=== PATIENT | female | born 1945 | race African-American/Black ===

== ENCOUNTER 2022-01-12 13:05 | Inpatient (IN) | payer MEDICARE, MEDICAID ==
[~2022-01-12] VITALS: Ht 162.6 cm; Wt 85.7 kg
[2022-01-12] MEDS: DEXT 5%/0.9% NACL 1,000 ML IV SCH (01:20)
[2022-01-12] MEDS ORDERED: ONDANSETRON HCL 4MG/2ML INJ IV STA (13:22)
[2022-01-12] MEDS ORDERED: PIPERACILLIN/TAZ 3.375G PREMIX 50 ML IV ONE (13:30)
[2022-01-12] MEDS ORDERED: VANCOMYCIN 1G PREMIX 200 ML IV ONE (13:30)
[2022-01-12] MEDS ORDERED: MIDAZOLAM HCL 2 MG/2 ML VIAL IV ONE (13:45)
[2022-01-12 14:29] LABS: MEAN CORPUSCULAR HEMOGLOBIN 29.3 pg (28.0-32.0); MEAN CORPUSCULAR VOLUME 85.8 fL (81.0-99.0); MEAN PLATELET VOLUME 8.3 fl (7.4-10.4); PLATELET 438 x1000/uL (130-400); RED BLOOD CELL COUNT 1.69 mill/uL (4.2-5.4); RED CELL DISTRIBUTION WIDTH 16.7 % (11.6-14.6)
[2022-01-12 14:30] LABS: PROTHROMBIN TIME 10.9 sec (9.6-11.0)
[2022-01-12 14:35] LABS: HEMATOCRIT. 14.5 % (36.0-48.0)
[2022-01-12] MEDS ORDERED: PANTOPRAZOLE SODIUM 40 MG/VIAL IV SCH (15:00)
[2022-01-12 15:06] LABS: CHLORIDE 78 mEq/L (98-107)
[2022-01-12] MEDS ORDERED: CLONIDINE 0.1MG TABLET PO PRN (15:30)
[2022-01-12] MEDS ORDERED: ONDANSETRON HCL 4MG/2ML INJ IV PRN (15:30)
[2022-01-12] MEDS ORDERED: NITROGLYCERIN 0.4MG TABLET SL SL PRN (15:30)
[2022-01-12] MEDS ORDERED: ACETAMINOPHEN 325MG TABLET PO PRN (15:30)
[2022-01-12] MEDS ORDERED: ZOLPIDEM TARTRATE 5MG TABLET PO PRN (15:30)
[2022-01-12] MEDS ORDERED: MAGNESIUM/ALUMINUM HYDROXIDE/SIMETHICONE 30ML UDC PO PRN (15:30)
[2022-01-12] MEDS ORDERED: IPRATROPIUM/ALBUTEROL 0.5-3(2.5)MG/3ML NEB NEB PRN (15:30)
[2022-01-12] MEDS ORDERED: GUAIFENESIN 200MG/10ML SUGAR FREE UDC PO PRN (15:30)
[2022-01-12] MEDS ORDERED: DOCUSATE SODIUM 100MG CAPSULE PO PRN (15:30)
[2022-01-12] MEDS ORDERED: PANTOPRAZOLE 80 MG in SODIUM CHLORIDE 0.9% 100 ML IV SCH ×2 (15:30→16:00)
[2022-01-12 16:09] LABS: PLATELET ESTIMATE INCREASED
[2022-01-12 16:25] LABS: TOTAL IRON BINDING CAPACITY 322 ug/dL (250-450)
[2022-01-12 16:40] LABS: ETHANOL BLOOD < 10 mg/dL; HDL CHOLESTEROL 39 mg/dL (40-59); LDL CHOLESTEROL 80 mg/dL (5-100)
[2022-01-12 17:05] LABS: FOLIC ACID (FOLATE) SERUM >20 ng/mL ng/mL (>5.38); VITAMIN B12 SERUM >2000 pg/mL pg/mL (211-911)
[2022-01-12] MEDS ORDERED: PIPERACILLIN/TAZ 3.375G PREMIX 50 ML IV SCH ×3 (17:45→23:00)
[2022-01-12] MEDS ORDERED: DEXTROSE 50% WATER 50ML SYRINGE IV PRN (17:45)
[2022-01-12 18:09] LABS: HEPATITIS B SURFACE ANTIGEN NEGATIVE
[2022-01-12 21:00] VITALS: BP 109/54
[2022-01-12] MEDS: INSULIN LISPRO 100 UNITS/ML SUBCUT SCH (21:00)
[2022-01-12] MEDS: BLOOD SUGAR DIAGNOSTIC STRIP TEST SCH (21:00)
[2022-01-12 22:00] VITALS: BP 100/57
[2022-01-12 22:41] VITALS: BP 100/57
[2022-01-12 22:58] VITALS: BP 101/57
[2022-01-12] MEDS: TRAMADOL 50MG TABLET PO PRN (23:56)
[2022-01-13] VITALS (11 sets, daily range): BP systolic 95–141; BP diastolic 39–70
[2022-01-13] MEDS: PANTOPRAZOLE 80 MG in SODIUM CHLORIDE 0.9% 100 ML IV SCH ×3 (01:22→18:28)
[2022-01-13] MEDS: PIPERACILLIN/TAZOBACTAM 3.375 G in DEXTROSE 5% WATER 50 ML IV SCH ×3 (01:49→21:18)
[2022-01-13 06:45] LABS: HEMATOCRIT. 28.4 % (36.0-48.0); HEMOGLOBIN. 9.6 g/dL (12.0-16.0); MEAN CORPUSCULAR HEMOGLOBIN 29.7 pg (28.0-32.0); MEAN CORPUSCULAR VOLUME 87.8 fL (81.0-99.0); MEAN PLATELET VOLUME 7.9 fl (7.4-10.4); PLATELET 303 x1000/uL (130-400); RED BLOOD CELL COUNT 3.24 mill/uL (4.2-5.4); RED CELL DISTRIBUTION WIDTH 15.2 % (11.6-14.6)
[2022-01-13 06:56] LABS: PROTHROMBIN TIME 10.5 sec (9.6-11.0)
[2022-01-13 07:15] LABS: CHLORIDE 93 mEq/L (98-107)
[2022-01-13] MEDS: INSULIN LISPRO 100 UNITS/ML SUBCUT SCH ×4 (07:20→21:00)
[2022-01-13] MEDS: BLOOD SUGAR DIAGNOSTIC STRIP TEST SCH ×4 (07:31→21:18)
[2022-01-13] MEDS ORDERED: NALOXONE HCL 0.4MG/ML VIAL IV PRN (08:00)
[2022-01-13] MEDS ORDERED: VANCOMYCIN 500 MG in DEXT 5% WATER 100 ML IV NR (10:30)
[2022-01-13] MEDS: DEXT 5%/0.9% NACL 1,000 ML IV SCH (13:39)
[2022-01-13 15:23] LABS: PLATELET ESTIMATE NORMAL
[2022-01-13] MEDS: TRAMADOL 50MG TABLET PO PRN (19:32)
[2022-01-13] MEDS: EPOETIN ALFA-EPBX 10,000 UNIT/ML VIAL SUBCUT SCH (21:18)
[2022-01-14] VITALS (10 sets, daily range): BP systolic 98–122; BP diastolic 42–80
[2022-01-14] MEDS: PANTOPRAZOLE 80 MG in SODIUM CHLORIDE 0.9% 100 ML IV SCH (04:00)
[2022-01-14 06:02] LABS: HEMATOCRIT. 24.9 % (36.0-48.0); HEMOGLOBIN. 8.4 g/dL (12.0-16.0); MEAN CORPUSCULAR HEMOGLOBIN 29.2 pg (28.0-32.0); MEAN CORPUSCULAR VOLUME 86.9 fL (81.0-99.0); MEAN PLATELET VOLUME 8.3 fl (7.4-10.4); PLATELET 277 x1000/uL (130-400); RED BLOOD CELL COUNT 2.87 mill/uL (4.2-5.4); RED CELL DISTRIBUTION WIDTH 15.6 % (11.6-14.6)
[2022-01-14] MEDS: BLOOD SUGAR DIAGNOSTIC STRIP TEST SCH ×4 (06:26→21:00)
[2022-01-14 06:35] LABS: PHOSPHORUS 4.9 mg/dL (2.5-4.9)
[2022-01-14] MEDS: TRAMADOL 50MG TABLET PO PRN ×2 (07:01→20:44)
[2022-01-14] MEDS: PIPERACILLIN/TAZOBACTAM 3.375 G in DEXTROSE 5% WATER 50 ML IV SCH ×2 (08:32→22:58)
[2022-01-14] MEDS: INSULIN LISPRO 100 UNITS/ML SUBCUT SCH ×4 (08:33→21:00)
[2022-01-14] MEDS: DEXT 5%/0.9% NACL 1,000 ML IV SCH (09:05)
[2022-01-14 09:49] LABS: PLATELET ESTIMATE NORMAL
[2022-01-14] MEDS: PANTOPRAZOLE SODIUM 40 MG/VIAL IV SCH ×2 (13:00→22:59)
[2022-01-14] MEDS ORDERED: FLUCONAZOLE 400MG/200ML BAG 200 ML IV SCH (18:00)
[2022-01-14] MEDS ORDERED: VANCOMYCIN 750 MG in DEXT 5% WATER 250 ML IV SCH (21:00)
[2022-01-15] VITALS (20 sets, daily range): BP systolic 97–125; BP diastolic 40–76
[2022-01-15] MEDS: DEXT 5%/0.9% NACL 1,000 ML IV SCH (05:55)
[2022-01-15] MEDS: BLOOD SUGAR DIAGNOSTIC STRIP TEST SCH ×4 (06:44→21:03)
[2022-01-15] MEDS: INSULIN LISPRO 100 UNITS/ML SUBCUT SCH ×4 (06:46→21:08)
[2022-01-15 07:12] LABS: HEMATOCRIT. 26.2 % (36.0-48.0); HEMOGLOBIN. 8.9 g/dL (12.0-16.0); MEAN CORPUSCULAR HEMOGLOBIN 29.2 pg (28.0-32.0); MEAN CORPUSCULAR VOLUME 85.9 fL (81.0-99.0); MEAN PLATELET VOLUME 8.3 fl (7.4-10.4); PLATELET 269 x1000/uL (130-400); RED BLOOD CELL COUNT 3.04 mill/uL (4.2-5.4); RED CELL DISTRIBUTION WIDTH 15.8 % (11.6-14.6)
[2022-01-15] MEDS: PANTOPRAZOLE SODIUM 40 MG/VIAL IV SCH ×2 (08:26→21:03)
[2022-01-15] MEDS: PIPERACILLIN/TAZOBACTAM 3.375 G in DEXTROSE 5% WATER 50 ML IV SCH ×2 (09:04→21:03)
[2022-01-15] MEDS ORDERED: COLL30OI TP (09:25)
[2022-01-15] MEDS ORDERED: INSULIN (09:25)
[2022-01-15] MEDS ORDERED: TRAM50TA3 PO (09:25)
[2022-01-15] MEDS ORDERED: KEPPSOL * (09:26)
[2022-01-15] MEDS ORDERED: SIMV-46 PO (09:26)
[2022-01-15] MEDS ORDERED: FOLI1TAB63 MT (09:45)
[2022-01-15] MEDS ORDERED: CHOL1POW2 GT (09:45)
[2022-01-15] MEDS ORDERED: PANT40TA51 GT (09:45)
[2022-01-15] MEDS ORDERED: ZINC220C6 (09:45)
[2022-01-15] MEDS ORDERED: SEVE2.4P PO (09:45)
[2022-01-15] MEDS: TRAMADOL 50MG TABLET PO PRN ×3 (10:34→21:09)
[2022-01-15 12:19] LABS: PLATELET ESTIMATE NORMAL
[2022-01-15] MEDS: FLUCONAZOLE 200 MG/100ML BAG 100 ML IV SCH (17:43)
[2022-01-15] MEDS: EPOETIN ALFA-EPBX 10,000 UNIT/ML VIAL SUBCUT SCH (21:03)
[2022-01-16] VITALS (13 sets, daily range): BP systolic 93–131; BP diastolic 40–87
[2022-01-16] MEDS: DEXT 5%/0.9% NACL 1,000 ML IV SCH (05:22)
[2022-01-16 06:35] LABS: HEMOGLOBIN. 8.6 g/dL (12.0-16.0); MEAN CORPUSCULAR HEMOGLOBIN 29.1 pg (28.0-32.0); MEAN CORPUSCULAR VOLUME 87.6 fL (81.0-99.0); MEAN PLATELET VOLUME 8.7 fl (7.4-10.4); PLATELET 285 x1000/uL (130-400); RED BLOOD CELL COUNT 2.97 mill/uL (4.2-5.4); RED CELL DISTRIBUTION WIDTH 15.9 % (11.6-14.6)
[2022-01-16] MEDS: BLOOD SUGAR DIAGNOSTIC STRIP TEST SCH ×5 (06:50→21:48)
[2022-01-16] MEDS: INSULIN LISPRO 100 UNITS/ML SUBCUT SCH ×4 (06:50→21:49)
[2022-01-16 06:55] LABS: PHOSPHORUS 3.7 mg/dL (2.5-4.9)
[2022-01-16] MEDS: PIPERACILLIN/TAZOBACTAM 3.375 G in DEXTROSE 5% WATER 50 ML IV SCH ×2 (08:15→21:48)
[2022-01-16] MEDS: PANTOPRAZOLE SODIUM 40 MG/VIAL IV SCH ×2 (08:15→21:48)
[2022-01-16 13:22] LABS: PLATELET ESTIMATE NORMAL
[2022-01-16] MEDS: FLUCONAZOLE 200 MG/100ML BAG 100 ML IV SCH (17:13)
[2022-01-16] MEDS: ACETAMINOPHEN 325MG TABLET PO PRN (17:14)
[2022-01-16] MEDS: TRAMADOL 50MG TABLET PO PRN (21:50)
[2022-01-17] VITALS (12 sets, daily range): BP systolic 104–141; BP diastolic 50–70
[2022-01-17 05:56] LABS: PHOSPHORUS 4.2 mg/dL (2.5-4.9)
[2022-01-17 06:10] LABS: HEMATOCRIT. 21.4 % (36.0-48.0); HEMOGLOBIN. 7.1 g/dL (12.0-16.0); MEAN CORPUSCULAR HEMOGLOBIN 28.7 pg (28.0-32.0); MEAN CORPUSCULAR VOLUME 87.1 fL (81.0-99.0); MEAN PLATELET VOLUME 9.2 fl (7.4-10.4); PLATELET 234 x1000/uL (130-400); RED BLOOD CELL COUNT 2.45 mill/uL (4.2-5.4); RED CELL DISTRIBUTION WIDTH 16.3 % (11.6-14.6)
[2022-01-17] MEDS: INSULIN LISPRO 100 UNITS/ML SUBCUT SCH ×4 (06:59→21:40)
[2022-01-17 07:55] LABS: PLATELET ESTIMATE NORMAL
[2022-01-17] MEDS: PANTOPRAZOLE SODIUM 40 MG/VIAL IV SCH ×2 (10:03→21:39)
[2022-01-17] MEDS: ACETAMINOPHEN 325MG TABLET PO PRN ×2 (11:15→19:30)
[2022-01-17] MEDS: BLOOD SUGAR DIAGNOSTIC STRIP TEST SCH ×3 (11:15→21:39)
[2022-01-17] MEDS: TRAMADOL 50MG TABLET PO PRN (11:41)
[2022-01-17] MEDS: PIPERACILLIN/TAZOBACTAM 3.375 G in DEXTROSE 5% WATER 50 ML IV SCH ×2 (12:56→21:39)
[2022-01-17] MEDS ORDERED: VANCOMYCIN IV SCH (14:00)
[2022-01-17] MEDS ORDERED: DEXTROSE 5% IV SCH (14:00)
[2022-01-17] MEDS ORDERED: WATER IV SCH (14:00)
[2022-01-17] MEDS ORDERED: VANCOMYCIN 500 MG in DEXT 5% WATER 100 ML IV SCH (14:00)
[2022-01-17] MEDS ORDERED: VANCOMYCIN 500MG PREMIX 100 ML IV SCH (14:00)
[2022-01-17] MEDS: FLUCONAZOLE 200 MG/100ML BAG 100 ML IV SCH (18:18)
[2022-01-18] VITALS (12 sets, daily range): BP systolic 119–158; BP diastolic 55–72
[2022-01-18] MEDS: TRAMADOL 50MG TABLET PO PRN ×4 (01:02→19:55)
[2022-01-18 06:10] LABS: PHOSPHORUS 3.9 mg/dL (2.5-4.9)
[2022-01-18] MEDS: BLOOD SUGAR DIAGNOSTIC STRIP TEST SCH ×4 (06:36→21:30)
[2022-01-18] MEDS: INSULIN LISPRO 100 UNITS/ML SUBCUT SCH ×4 (06:47→21:38)
[2022-01-18 07:35] LABS: HEMATOCRIT. 23.8 % (36.0-48.0); HEMOGLOBIN. 8.3 g/dL (12.0-16.0); MEAN CORPUSCULAR VOLUME 86.4 fL (81.0-99.0); MEAN PLATELET VOLUME 9.4 fl (7.4-10.4); RED BLOOD CELL COUNT 2.75 mill/uL (4.2-5.4); RED CELL DISTRIBUTION WIDTH 16.5 % (11.6-14.6)
[2022-01-18] MEDS: PANTOPRAZOLE SODIUM 40 MG/VIAL IV SCH ×2 (08:48→21:36)
[2022-01-18 08:50] LABS: NUCLEATED RED BLOOD CELLS 1 /100 WBC
[2022-01-18 08:51] LABS: PLATELET ESTIMATE NORMAL
[2022-01-18 08:52] LABS: PLATELET 380 x1000/uL (130-400)
[2022-01-18] MEDS: FLUCONAZOLE 200 MG/100ML BAG 100 ML IV SCH (17:16)
[2022-01-18] MEDS: EPOETIN ALFA-EPBX 10,000 UNIT/ML VIAL SUBCUT SCH (21:36)
[2022-01-19] VITALS (12 sets, daily range): BP systolic 91–150; BP diastolic 35–75
[2022-01-19] MEDS: BLOOD SUGAR DIAGNOSTIC STRIP TEST SCH ×4 (06:49→20:39)
[2022-01-19] MEDS: INSULIN LISPRO 100 UNITS/ML SUBCUT SCH ×4 (06:53→20:54)
[2022-01-19] MEDS: PANTOPRAZOLE SODIUM 40 MG/VIAL IV SCH ×2 (08:06→20:35)
[2022-01-19 10:01] LABS: PHOSPHORUS 4.7 mg/dL (2.5-4.9)
[2022-01-19] MEDS: ACETAMINOPHEN 325MG TABLET PO PRN (10:07)
[2022-01-19 10:18] LABS: PROTHROMBIN TIME 10.9 sec (9.6-11.0)
[2022-01-19 12:20] LABS: HEMATOCRIT. 23.8 % (36.0-48.0); HEMOGLOBIN. 7.8 g/dL (12.0-16.0); MEAN CORPUSCULAR HEMOGLOBIN 28.7 pg (28.0-32.0); MEAN CORPUSCULAR VOLUME 87.6 fL (81.0-99.0); MEAN PLATELET VOLUME 8.7 fl (7.4-10.4); PLATELET 294 x1000/uL (130-400); RED BLOOD CELL COUNT 2.72 mill/uL (4.2-5.4); RED CELL DISTRIBUTION WIDTH 17.4 % (11.6-14.6)
[2022-01-19 14:46] LABS: PLATELET ESTIMATE NORMAL
[2022-01-19] MEDS ORDERED: NALOXONE HCL 0.4MG/ML VIAL IV PRN (16:45)
[2022-01-19] MEDS: FLUCONAZOLE 200 MG/100ML BAG 100 ML IV SCH (18:35)
[2022-01-19] MEDS: TRAMADOL 50MG TABLET PO PRN (22:21)
[2022-01-20] VITALS (18 sets, daily range): BP systolic 101–142; BP diastolic 42–84
[2022-01-20 04:35] LABS: HEMATOCRIT. 21.4 % (36.0-48.0); MEAN CORPUSCULAR VOLUME 88.3 fL (81.0-99.0); MEAN PLATELET VOLUME 8.7 fl (7.4-10.4); PLATELET 297 x1000/uL (130-400); RED BLOOD CELL COUNT 2.42 mill/uL (4.2-5.4); RED CELL DISTRIBUTION WIDTH 16.6 % (11.6-14.6)
[2022-01-20 04:44] LABS: PROTHROMBIN TIME 11.2 sec (9.6-11.0)
[2022-01-20 05:12] LABS: PHOSPHORUS 3.4 mg/dL (2.5-4.9)
[2022-01-20] MEDS: BLOOD SUGAR DIAGNOSTIC STRIP TEST SCH ×4 (06:42→20:39)
[2022-01-20] MEDS: PANTOPRAZOLE SODIUM 40 MG/VIAL IV SCH ×2 (08:46→20:41)
[2022-01-20] MEDS: INSULIN LISPRO 100 UNITS/ML SUBCUT SCH ×4 (08:48→21:25)
[2022-01-20 13:33] LABS: PLATELET ESTIMATE NORMAL
[2022-01-21] VITALS (9 sets, daily range): BP systolic 100–159; BP diastolic 34–71
[2022-01-21] MEDS: BLOOD SUGAR DIAGNOSTIC STRIP TEST SCH ×4 (06:24→21:02)
[2022-01-21 06:31] LABS: BASOPHILS % 0.4 % (0.0-2.0); EOSINOPHILS % 5.1 % (0.0-5.0); HEMATOCRIT. 27.3 % (36.0-48.0); LYMPHOCYTES % 7.3 % (20.0-50.0); MEAN CORPUSCULAR HEMOGLOBIN 29.3 pg (28.0-32.0); MEAN CORPUSCULAR VOLUME 88.9 fL (81.0-99.0); MEAN PLATELET VOLUME 8.7 fl (7.4-10.4); MONOCYTES % 11.6 % (2.0-8.0); NEUTROPHILS % 75.6 % (40.0-76.0); PLATELET 308 x1000/uL (130-400); RED BLOOD CELL COUNT 3.07 mill/uL (4.2-5.4); RED CELL DISTRIBUTION WIDTH 16.8 % (11.6-14.6)
[2022-01-21 06:37] LABS: INR 1.1; PROTHROMBIN TIME 11.3 sec (9.6-11.0)
[2022-01-21 06:55] LABS: PHOSPHORUS 4.3 mg/dL (2.5-4.9)
[2022-01-21] MEDS: INSULIN LISPRO 100 UNITS/ML SUBCUT SCH ×4 (07:20→21:15)
[2022-01-21] MEDS: PANTOPRAZOLE SODIUM 40 MG/VIAL IV SCH ×2 (08:44→21:14)
[2022-01-21] MEDS ORDERED: PHENYLEPHRINE HCL 10 MG/ML 1ML (IV VIAL) IV ONE (13:04)
[2022-01-21] MEDS ORDERED: PROPOFOL 200MG/20ML VIAL IV ONE (13:06)
[2022-01-21] MEDS ORDERED: DEXAMETHASONE 4MG/ML 1ML VIAL ONE (13:26)
[2022-01-21] MEDS ORDERED: ONDANSETRON HCL 4MG/2ML INJ ONE (13:26)
[2022-01-21] MEDS ORDERED: EPOETIN ALFA-EPBX 4,000 UNIT/ML VIAL SUBCUT SCH (21:00)
[2022-01-22] VITALS: BP 128/62
[2022-01-22 04:00] VITALS: BP 117/61
[2022-01-22] MEDS: BLOOD SUGAR DIAGNOSTIC STRIP TEST SCH ×4 (07:28→21:25)
[2022-01-22 08:00] VITALS: BP 105/60
[2022-01-22] MEDS: PANTOPRAZOLE SODIUM 40 MG/VIAL IV SCH ×2 (08:44→21:24)
[2022-01-22] MEDS: INSULIN LISPRO 100 UNITS/ML SUBCUT SCH ×4 (08:49→21:25)
[2022-01-22 10:01] LABS: BASOPHILS % 0.3 % (0.0-2.0); EOSINOPHILS % 0.1 % (0.0-5.0); HEMATOCRIT. 26.7 % (36.0-48.0); HEMOGLOBIN. 8.6 g/dL (12.0-16.0); LYMPHOCYTES % 7.4 % (20.0-50.0); MEAN CORPUSCULAR HEMOGLOBIN 28.8 pg (28.0-32.0); MEAN CORPUSCULAR VOLUME 89.9 fL (81.0-99.0); MEAN PLATELET VOLUME 8.2 fl (7.4-10.4); MONOCYTES % 6.4 % (2.0-8.0); NEUTROPHILS % 85.8 % (40.0-76.0); PLATELET 358 x1000/uL (130-400); RED BLOOD CELL COUNT 2.97 mill/uL (4.2-5.4); RED CELL DISTRIBUTION WIDTH 16.1 % (11.6-14.6)
[2022-01-22 10:21] LABS: PHOSPHORUS 6.4 mg/dL (2.5-4.9)
[2022-01-22 10:47] LABS: PROTHROMBIN TIME 11.1 sec (9.6-11.0)
[2022-01-22] MEDS ORDERED: LIDOCAINE HCL 1% 10 MG/ML 10ML VIAL ONE (10:53)
[2022-01-22 12:00] VITALS: BP 113/68
[2022-01-22 16:00] VITALS: BP 137/63
[2022-01-22 20:00] VITALS: BP 153/75
[2022-01-23] VITALS: BP 148/82
[2022-01-23 04:00] VITALS: BP 157/80
[2022-01-23] MEDS: BLOOD SUGAR DIAGNOSTIC STRIP TEST SCH ×4 (07:41→19:53)
[2022-01-23 08:00] VITALS: BP 163/94
[2022-01-23] MEDS: PANTOPRAZOLE SODIUM 40 MG/VIAL IV SCH ×2 (09:10→19:52)
[2022-01-23] MEDS: INSULIN LISPRO 100 UNITS/ML SUBCUT SCH ×4 (09:12→19:53)
[2022-01-23 10:45] LABS: BASOPHILS % 0.6 % (0.0-2.0); EOSINOPHILS % 2.2 % (0.0-5.0); HEMATOCRIT. 27.4 % (36.0-48.0); LYMPHOCYTES % 7.9 % (20.0-50.0); MEAN CORPUSCULAR HEMOGLOBIN 29.2 pg (28.0-32.0); MEAN CORPUSCULAR VOLUME 89.1 fL (81.0-99.0); MONOCYTES % 4.5 % (2.0-8.0); NEUTROPHILS % 84.8 % (40.0-76.0); PLATELET 402 x1000/uL (130-400); RED BLOOD CELL COUNT 3.08 mill/uL (4.2-5.4); RED CELL DISTRIBUTION WIDTH 16.2 % (11.6-14.6)
[2022-01-23 10:53] LABS: PHOSPHORUS 4.9 mg/dL (2.5-4.9)
[2022-01-23 12:00] VITALS: BP 154/67
[2022-01-23 16:00] VITALS: BP 163/67
[2022-01-23] MEDS: LOSARTAN POTASSIUM 25 MG TABLET PO SCH (16:54)
[2022-01-23 20:00] VITALS: BP 161/64
[2022-01-24] VITALS (7 sets, daily range): BP systolic 126–169; BP diastolic 56–73
[2022-01-24] MEDS: BLOOD SUGAR DIAGNOSTIC STRIP TEST SCH ×4 (06:18→20:49)
[2022-01-24 06:20] LABS: BASOPHILS % 0.5 % (0.0-2.0); EOSINOPHILS % 3.1 % (0.0-5.0); HEMATOCRIT. 28.5 % (36.0-48.0); HEMOGLOBIN. 9.2 g/dL (12.0-16.0); LYMPHOCYTES % 8.9 % (20.0-50.0); MEAN CORPUSCULAR VOLUME 89.5 fL (81.0-99.0); MEAN PLATELET VOLUME 8.4 fl (7.4-10.4); MONOCYTES % 8.5 % (2.0-8.0); PLATELET 394 x1000/uL (130-400); RED BLOOD CELL COUNT 3.19 mill/uL (4.2-5.4)
[2022-01-24 07:21] LABS: PHOSPHORUS 4.3 mg/dL (2.5-4.9)
[2022-01-24] MEDS: LOSARTAN POTASSIUM 25 MG TABLET PO SCH (09:03)
[2022-01-24] MEDS: PANTOPRAZOLE SODIUM 40 MG/VIAL IV SCH ×2 (09:03→20:48)
[2022-01-24] MEDS: INSULIN LISPRO 100 UNITS/ML SUBCUT SCH ×4 (09:04→20:58)
[2022-01-24] MEDS: EPOETIN ALFA 4000UNITS/ML VIAL SUBCUT SCH (20:48)
[2022-01-24] MEDS ORDERED: PREDNISONE 20MG TABLET GT NR (21:00)
[2022-01-24] MEDS ORDERED: PREDNISONE 10MG TABLET GT NR (21:00)
[2022-01-24] MEDS ORDERED: LACTULOSE 20G/30ML UDC PO NR (21:45)
[2022-01-25] VITALS (16 sets, daily range): BP systolic 139–201; BP diastolic 71–97
[2022-01-25] MEDS ORDERED: PREDNISONE 20MG TABLET GT NR ×2 (03:00→09:00)
[2022-01-25] MEDS ORDERED: PREDNISONE 10MG TABLET GT NR ×2 (03:00→09:00)
[2022-01-25] MEDS: BLOOD SUGAR DIAGNOSTIC STRIP TEST SCH ×4 (05:25→21:05)
[2022-01-25 07:03] LABS: HEMATOCRIT. 30.5 % (36.0-48.0); HEMOGLOBIN. 9.9 g/dL (12.0-16.0); MEAN CORPUSCULAR HEMOGLOBIN 29.1 pg (28.0-32.0); MEAN CORPUSCULAR VOLUME 89.9 fL (81.0-99.0); MEAN PLATELET VOLUME 8.7 fl (7.4-10.4); PLATELET 395 x1000/uL (130-400); RED CELL DISTRIBUTION WIDTH 15.8 % (11.6-14.6)
[2022-01-25 07:45] LABS: PHOSPHORUS 5.6 mg/dL (2.5-4.9)
[2022-01-25] MEDS: DOCUSATE SODIUM SUGAR FREE 100MG/10ML UDC NG SCH (08:59)
[2022-01-25] MEDS: LOSARTAN POTASSIUM 25 MG TABLET PO SCH (08:59)
[2022-01-25] MEDS: PANTOPRAZOLE SODIUM 40 MG/VIAL IV SCH ×2 (08:59→21:23)
[2022-01-25] MEDS ORDERED: DIPHENHYDRAMINE 50MG CAPSULE GT NR (09:00)
[2022-01-25] MEDS: INSULIN LISPRO 100 UNITS/ML SUBCUT SCH ×4 (09:00→21:24)
[2022-01-25] MEDS ORDERED: HEPARIN 1000 UNITS/ML 10ML ONE (09:40)
[2022-01-25] MEDS ORDERED: LIDOCAINE HCL 1% 20ML VIAL (Pyxis) INJ ONE (09:40)
[2022-01-25] MEDS ORDERED: FENTANYL CITRATE/PF 50MCG/ML 2ML VIAL ONE (11:02)
[2022-01-25 11:06] LABS: PLATELET ESTIMATE NORMAL
[2022-01-25] MEDS ORDERED: FENTANYL CITRATE/PF 50MCG/ML 2ML VIAL IV NR (12:00)
[2022-01-25] MEDS: ACETAMINOPHEN 325MG TABLET PO PRN (16:52)
[2022-01-25] MEDS: TRAMADOL 50MG TABLET GT PRN (17:54)
[2022-01-26] VITALS (10 sets, daily range): BP systolic 118–164; BP diastolic 49–94
[2022-01-26] MEDS: BLOOD SUGAR DIAGNOSTIC STRIP TEST SCH ×4 (07:40→20:55)
[2022-01-26] MEDS: LOSARTAN POTASSIUM 25 MG TABLET PO SCH (09:04)
[2022-01-26] MEDS: PANTOPRAZOLE SODIUM 40 MG/VIAL IV SCH ×2 (09:04→20:56)
[2022-01-26] MEDS: DOCUSATE SODIUM SUGAR FREE 100MG/10ML UDC NG SCH (09:05)
[2022-01-26] MEDS: INSULIN LISPRO 100 UNITS/ML SUBCUT SCH ×4 (09:06→20:55)
[2022-01-26] MEDS ORDERED: HEPARIN 1000 UNITS/ML 10ML ONE (12:27)
[2022-01-26] MEDS ORDERED: LIDOCAINE HCL/PF 1% 10 MG/ML 5ML VIAL ONE ×2 (12:27→12:58)
[2022-01-26] MEDS: TRAMADOL 50MG TABLET GT PRN (12:33)
[2022-01-26] MEDS ORDERED: NALOXONE HCL 0.4MG/ML VIAL IV PRN (19:00)
[2022-01-26 22:04] LABS: HEPATITIS B SURFACE ANTIGEN NEGATIVE
[2022-01-27] VITALS (7 sets, daily range): BP systolic 107–147; BP diastolic 51–68
[2022-01-27] MEDS: EPOETIN ALFA 4000UNITS/ML VIAL SUBCUT SCH (05:25)
[2022-01-27 06:32] LABS: BASOPHILS % 0.5 % (0.0-2.0); EOSINOPHILS % 0.8 % (0.0-5.0); HEMATOCRIT. 30.3 % (36.0-48.0); LYMPHOCYTES % 11.3 % (20.0-50.0); MEAN CORPUSCULAR HEMOGLOBIN 29.2 pg (28.0-32.0); MEAN CORPUSCULAR VOLUME 88.4 fL (81.0-99.0); MEAN PLATELET VOLUME 8.3 fl (7.4-10.4); MONOCYTES % 7.9 % (2.0-8.0); NEUTROPHILS % 79.5 % (40.0-76.0); PLATELET 423 x1000/uL (130-400); RED BLOOD CELL COUNT 3.43 mill/uL (4.2-5.4); RED CELL DISTRIBUTION WIDTH 15.6 % (11.6-14.6)
[2022-01-27] MEDS: BLOOD SUGAR DIAGNOSTIC STRIP TEST SCH ×3 (06:41→16:45)
[2022-01-27 07:08] LABS: PHOSPHORUS 3.5 mg/dL (2.5-4.9)
[2022-01-27] MEDS: INSULIN LISPRO 100 UNITS/ML SUBCUT SCH ×3 (08:59→17:50)
[2022-01-27] MEDS: DOCUSATE SODIUM SUGAR FREE 100MG/10ML UDC NG SCH (08:59)
[2022-01-27] MEDS: PANTOPRAZOLE SODIUM 40 MG/VIAL IV SCH (09:00)
[2022-01-27] MEDS: LOSARTAN POTASSIUM 25 MG TABLET PO SCH (09:06)
== END 2022-01-27 18:40 | DRG 871 ==
LOC: ER 13:05 → 3WST 14:48 → ENRESERV 17:58 → 7WST 01-21 17:54
PROVIDERS: ADMIT Internal Medicine; ATTEND Internal Medicine
PROC: 5A1D70Z Performance of Urinary Filtration, Intermittent, Less than 6 Hours Per Day (ICD-10-PCS; 2022-01-12)
PROC: 30233N1 Transfusion of Nonautologous Red Blood Cells into Peripheral Vein, Percutaneous Approach (ICD-10-PCS; 2022-01-12)
PROC: 0JBQ3ZZ Excision of Right Foot Subcutaneous Tissue and Fascia, Percutaneous Approach (ICD-10-PCS; principal; 2022-01-14)
PROC: 5A1D70Z Performance of Urinary Filtration, Intermittent, Less than 6 Hours Per Day (ICD-10-PCS; 2022-01-14)
PROC: 5A1D70Z Performance of Urinary Filtration, Intermittent, Less than 6 Hours Per Day (ICD-10-PCS; 2022-01-17)
PROC: 5A1D70Z Performance of Urinary Filtration, Intermittent, Less than 6 Hours Per Day (ICD-10-PCS; 2022-01-19)
PROC: 5A1D70Z Performance of Urinary Filtration, Intermittent, Less than 6 Hours Per Day (ICD-10-PCS; 2022-01-21)
PROC: 0DB78ZX Excision of Stomach, Pylorus, Via Natural or Artificial Opening Endoscopic, Diagnostic (ICD-10-PCS; 2022-01-21)
PROC: 0D20XUZ Change Feeding Device in Upper Intestinal Tract, External Approach (ICD-10-PCS; 2022-01-21)
PROC: 5A1D70Z Performance of Urinary Filtration, Intermittent, Less than 6 Hours Per Day (ICD-10-PCS; 2022-01-22)
PROC: B5181ZA Fluoroscopy of Superior Vena Cava using Low Osmolar Contrast, Guidance (ICD-10-PCS; 2022-01-22)
PROC: 02HV33Z Insertion of Infusion Device into Superior Vena Cava, Percutaneous Approach (ICD-10-PCS; 2022-01-22)
PROC: B5181ZA Fluoroscopy of Superior Vena Cava using Low Osmolar Contrast, Guidance (ICD-10-PCS; 2022-01-22)
PROC: 5A1D70Z Performance of Urinary Filtration, Intermittent, Less than 6 Hours Per Day (ICD-10-PCS; 2022-01-25)
PROC: 5A1D70Z Performance of Urinary Filtration, Intermittent, Less than 6 Hours Per Day (ICD-10-PCS; 2022-01-26)
PROC: 02H633Z Insertion of Infusion Device into Right Atrium, Percutaneous Approach (ICD-10-PCS; 2022-01-26)
PROC: 0JH63XZ Insertion of Tunneled Vascular Access Device into Chest Subcutaneous Tissue and Fascia, Percutaneous Approach (ICD-10-PCS; 2022-01-26)
DX: A41.89 Other specified sepsis (principal); N18.6 End stage renal disease; I12.0 Hypertensive chronic kidney disease with stage 5 chronic kidney disease or end stage renal disease; E44.0 Moderate protein-calorie malnutrition; E87.1 Hypo-osmolality and hyponatremia; G93.40 Encephalopathy, unspecified; E87.2 Acidosis; D62 Acute posthemorrhagic anemia; K56.7 Ileus, unspecified; L03.90 Cellulitis, unspecified; E11.22 Type 2 diabetes mellitus with diabetic chronic kidney disease; E11.51 Type 2 diabetes mellitus with diabetic peripheral angiopathy without gangrene; R65.20 Severe sepsis without septic shock; E78.5 Hyperlipidemia, unspecified; K94.21 Gastrostomy hemorrhage; F01.50 Vascular dementia, unspecified severity, without behavioral disturbance, psychotic disturbance, mood disturbance, and anxiety; I07.1 Rheumatic tricuspid insufficiency; I27.20 Pulmonary hypertension, unspecified; I69.320 Aphasia following cerebral infarction; K21.9 Gastro-esophageal reflux disease without esophagitis; K29.70 Gastritis, unspecified, without bleeding; K74.60 Unspecified cirrhosis of liver; K76.0 Fatty (change of) liver, not elsewhere classified; R13.10 Dysphagia, unspecified; Z74.01 Bed confinement status; Z79.4 Long term (current) use of insulin; Z82.49 Family history of ischemic heart disease and other diseases of the circulatory system; Z83.3 Family history of diabetes mellitus; Z87.891 Personal history of nicotine dependence; Z91.041 Radiographic dye allergy status; Z99.2 Dependence on renal dialysis; R79.89 Other specified abnormal findings of blood chemistry; Z20.822 Contact with and (suspected) exposure to COVID-19; Z79.01 Long term (current) use of anticoagulants; Z68.32 Body mass index [BMI] 32.0-32.9, adult
CPT/HCPCS: 36415; 36556; 36558; 36589; 71045; 74018; 74176; 76700; 76937; 77001; 80048; 80053; 80061; 80076; 80202; 80320; 82140; 82248; 82270; 82607; 82728; 82746; 82962; 83036; 83540; 83550; 83605; 83735; 83880; 84100; 84145; 84443; 85018; 85025; 85044; 86705; 86709; 86803; 86850; 86900; 86920; 87070; 87077; 87186; 87340; 87426; 88305; 93005; 93306; 93923; 93970; 93971; 99291; A6261; C1752; C9113; J0885; J1100; J1450; J1644; J1815; J2250; J2370; J2405; J2543; J2704; J3010; J3370; J3490; J7050; J7060; J7070; J7512; P9016; Q0163; G0480